=== PATIENT | female | born 1950 | race Caucasian/White ===

== ENCOUNTER 2016-11-06 07:00 | Day surgery (SDC) | payer MEDICARE, MEDICAID ==
[2016-11-06] VITALS (14 sets, daily range): BP systolic 91–148; BP diastolic 48–87
[~2016-11-06] VITALS: Ht 30.5 cm; Wt 0.5 kg
[~2016-11-06 07:00] MED LIST: ASPI325T4 PO; PROC25SU24 PO
[2016-11-06] MEDS ORDERED: FUROSEMIDE 20 MG/2 ML VIAL ONE (13:37)
[2016-11-06] MEDS ORDERED: FUROSEMIDE 20 MG/2 ML VIAL IV ONE ×2 (14:00→15:45)
[2016-11-06 14:42] LABS: CONDITION AutoValidated; DEFINITIVE SEE PRINTOUT; Hematocrit 23.6 % (36.0-46.0); Hemoglobin 8.4 g/dL (12.2-16.2); Mean Corpuscular Hemoglobin 35.8 pg (28.0-32.0); Mean Corpuscular Hgb Conc. 35.6 g/dL (32.0-36.0); Mean Corpuscular Volume 100.5 fL (80.0-100.0); Mean Platelet Volume 9.4 fL (7.4-10.4); Platelet Count (auto) 21 10^3/uL (140-450); SUSPECT SEE PRINTOUT
[2016-11-06 14:44] LABS: Red Cell Distribution Width 27.7 % (11.6-16.0)
[2016-11-06 14:46] LABS: Metamyelocytes % 0; Myelocytes % 0; Promyelocytes % 0; Reactive Lymphocytes 0
[2016-11-06 15:00] LABS: Anisocytosis Slight; Platelet Estimate Markedly Decreased
== END 2016-11-06 19:00 | disposition home or self-care (01) ==
LOC: CATH 07:00
PROVIDERS: ATTEND Internal Medicine
DX: D64.9 Anemia, unspecified (principal)
CPT/HCPCS: 36415; 36430; 85007; 85027; 86850; 86900; 86901; 86920; J1940; J7040; P9016

== ENCOUNTER 2016-11-27 17:50 | Emergency (ER) | payer MEDICARE, MEDICAID ==
[~2016-11-27] VITALS: Ht 165.1 cm; Wt 117.9 kg
[2016-11-27 19:47] LABS: CONDITION Y; DEFINITIVE SEE PRINTOUT; Hematocrit 16.1 % (36.0-46.0); Mean Corpuscular Hemoglobin 34.4 pg (28.0-32.0); Mean Corpuscular Hgb Conc. 35.4 g/dL (32.0-36.0); Mean Corpuscular Volume 97.2 fL (80.0-100.0); Mean Platelet Volume 8.7 fL (7.4-10.4); Platelet Count (auto) 28 10^3/uL (140-450); SUSPECT SEE PRINTOUT; White Blood Cell 2.2 10^3/uL (4.4-10.8)
[2016-11-27 19:50] LABS: Albumin 3.5 g/dL (3.4-5.0); BUN/Creatinine Ratio 25.8; Bilirubin, Total 0.5 mg/dL (0.2-1.0); Calcium 8.7 mg/dL (8.5-10.1); Potassium 3.9 mmol/L (3.5-5.1); Red Cell Distribution Width 25.4 % (11.6-16.0)
[2016-11-27 19:57] LABS: Hemoglobin 5.7 g/dL (12.2-16.2)
[2016-11-27 19:58] LABS: Metamyelocytes % 0; Myelocytes % 0; Promyelocytes % 0; Reactive Lymphocytes 0
[2016-11-27 20:38] LABS: Platelet Estimate Markedly Decreased
[2016-11-27 20:41] LABS: Anisocytosis Moderate
[2016-11-28] VITALS (9 sets, daily range): BP systolic 119–161; BP diastolic 47–94
[2016-11-28 06:32] LABS: CONDITION Y; DEFINITIVE SEE PRINTOUT; Hematocrit 22.4 % (36.0-46.0); Hemoglobin 8.1 g/dL (12.2-16.2); Mean Corpuscular Hemoglobin 33.8 pg (28.0-32.0); Mean Corpuscular Volume 93.7 fL (80.0-100.0); Mean Platelet Volume 9.2 fL (7.4-10.4); SUSPECT SEE PRINTOUT
[2016-11-28 06:34] LABS: Red Cell Distribution Width 20.5 % (11.6-16.0)
[2016-11-28 06:38] LABS: Platelet Count (auto) 20 10^3/uL (140-450); White Blood Cell 1.6 10^3/uL (4.4-10.8)
[2016-11-28 06:39] LABS: Metamyelocytes % 0; Myelocytes % 0; Promyelocytes % 0; Reactive Lymphocytes 0
[2016-11-28 08:42] LABS: Anisocytosis Moderate; Platelet Estimate Markedly Decreased
== END 2016-11-28 07:44 | disposition home or self-care (01) ==
LOC: ER 17:54
DX: D61.818 Other pancytopenia (principal); D46.9 Myelodysplastic syndrome, unspecified; E78.5 Hyperlipidemia, unspecified; I10 Essential (primary) hypertension; M54.9 Dorsalgia, unspecified; F12.10 Cannabis abuse, uncomplicated; G89.29 Other chronic pain; B15.9 Hepatitis A without hepatic coma; Z98.51 Tubal ligation status; Z88.0 Allergy status to penicillin; Z88.1 Allergy status to other antibiotic agents; Z88.6 Allergy status to analgesic agent; Z87.891 Personal history of nicotine dependence
CPT/HCPCS: 36415; 36430; 71010; 80053; 84484; 85007; 85027; 86850; 86900; 86901; 86920; 99285; P9016

== ENCOUNTER 2017-01-18 17:16 | Inpatient (IN) | payer MEDICARE, MEDICAID ==
[~2017-01-18] VITALS: Ht 167.6 cm; Wt 117.9 kg
[2017-01-18 18:40] LABS: CONDITION Y; DEFINITIVE SEE PRINTOUT; Hematocrit 16.1 % (36.0-46.0); Mean Corpuscular Hemoglobin 38.6 pg (28.0-32.0); Mean Corpuscular Hgb Conc. 34.7 g/dL (32.0-36.0); Mean Corpuscular Volume 111.3 fL (80.0-100.0); Mean Platelet Volume 7.9 fL (7.4-10.4); SUSPECT SEE PRINTOUT
[2017-01-18 18:46] LABS: Red Cell Distribution Width 31.7 % (11.6-16.0); White Blood Cell 1.9 10^3/uL (4.4-10.8)
[2017-01-18 18:47] LABS: Hemoglobin 5.6 g/dL (12.2-16.2); Platelet Count (auto) 43 10^3/uL (140-450)
[2017-01-18 18:48] LABS: Metamyelocytes % 0; Myelocytes % 0; Promyelocytes % 0; Reactive Lymphocytes 0
[2017-01-18 18:57] LABS: Albumin 3.4 g/dL (3.4-5.0); BUN/Creatinine Ratio 26.8; Bilirubin, Total 0.4 mg/dL (0.2-1.0); Calcium 8.4 mg/dL (8.5-10.1); Potassium 3.9 mmol/L (3.5-5.1); Total Protein 6.8 g/dL (6.4-8.2)
[2017-01-18] MEDS: SODIUM CHLORIDE 0.9% 1,000 ML IV SCH (19:29)
[2017-01-18] MEDS ORDERED: MORPHINE SULF INJ 2 MG/ML SYRINGE 1ML IV PRN ×2 (19:30)
[2017-01-18] MEDS ORDERED: TEMAZEPAM 15 MG CAP PO PRN (19:30)
[2017-01-18] MEDS ORDERED: HYDROcodone-ACET 5/325MG TAB PO PRN (19:30)
[2017-01-18] MEDS ORDERED: ACETAMINOPHEN 325 MG TAB PO PRN (19:30)
[2017-01-18] MEDS ORDERED: ONDANSETRON HCL 4 MG/2 ML VIAL IV PRN (19:30)
[2017-01-18] MEDS ORDERED: NITROGLYCERIN 0.4 MG SL TAB SL PRN (19:30)
[2017-01-18] MEDS ORDERED: DEXTROSE (50%) 50ML SYRG IV PRN (19:45)
[2017-01-18] MEDS ORDERED: cloNIDine HCL 0.1 MG TAB PO PRN (19:45)
[2017-01-18 20:00] LABS: Anisocytosis Marked; Macrocytosis Marked; Ovalocytes FEW; Platelet Estimate Decreased; Polychromasia Slight
[2017-01-18 20:08] LABS: Partial Thromboplastin Time 22.2 sec (22.64-33.71); Prothrombin Time 10.9 sec (9.37-12.3)
[2017-01-18 22:50] VITALS: BP 135/80
[2017-01-18] MEDS: ACCU-CHEK COMFORT CURVE STRIP VI SCH (23:08)
[2017-01-18] MEDS: FAMOTIDINE 20 MG TAB PO SCH (23:09)
[2017-01-18] MEDS: InsuLIN REG 1unit/0.01ml Soln (100units/ml) SC SCH (23:09)
[2017-01-19] VITALS (14 sets, daily range): BP systolic 105–141; BP diastolic 45–71
[2017-01-19] MEDS: InsuLIN REG 1unit/0.01ml Soln (100units/ml) SC SCH ×2 (06:09→11:30)
[2017-01-19] MEDS: ACCU-CHEK COMFORT CURVE STRIP VI SCH ×2 (06:09→11:30)
[2017-01-19 08:34] LABS: CONDITION Y; DEFINITIVE SEE PRINTOUT; SUSPECT SEE PRINTOUT
[2017-01-19 08:40] LABS: Hematocrit 21.8 % (36.0-46.0); Mean Corpuscular Hgb Conc. 35.1 g/dL (32.0-36.0); Mean Corpuscular Volume 99.7 fL (80.0-100.0); Mean Platelet Volume 8.1 fL (7.4-10.4); Platelet Count (auto) 37 10^3/uL (140-450)
[2017-01-19 08:43] LABS: Red Cell Distribution Width 28.8 % (11.6-16.0)
[2017-01-19 08:47] LABS: Hemoglobin 7.6 g/dL (12.2-16.2); White Blood Cell 1.7 10^3/uL (4.4-10.8)
[2017-01-19 08:48] LABS: Metamyelocytes % 0; Myelocytes % 0; Promyelocytes % 0; Reactive Lymphocytes 0
[2017-01-19 08:52] LABS: Albumin 3.1 g/dL (3.4-5.0); BUN/Creatinine Ratio 27.6; Calcium 7.7 mg/dL (8.5-10.1); Potassium 3.9 mmol/L (3.5-5.1)
[2017-01-19 08:54] LABS: Bilirubin, Total 0.6 mg/dL (0.2-1.0); Total Protein 6.2 g/dL (6.4-8.2)
[2017-01-19 09:53] LABS: Platelet Estimate Decreased
[2017-01-19 09:54] LABS: Anisocytosis Marked; Macrocytosis Marked; Ovalocytes FEW; Polychromasia Slight; Tear Drop Cells FEW
[2017-01-19] MEDS ORDERED: MULTIPLE VITAMIN TAB PO SCH (10:00)
[2017-01-19] MEDS: FAMOTIDINE 20 MG TAB PO SCH (10:12)
[2017-01-19] MEDS: SODIUM CHLORIDE 0.9% 1,000 ML IV SCH (12:34)
== END 2017-01-19 19:40 | disposition home or self-care (01) | DRG 809 ==
LOC: ER 17:21 → TELE 17:22 → TELE-WESTW 22:20
PROVIDERS: ADMIT Internal Medicine; ATTEND Internal Medicine
PROC: 30233N1 Transfusion of Nonautologous Red Blood Cells into Peripheral Vein, Percutaneous Approach (ICD-10-PCS; principal; 2017-01-19)
DX: D61.818 Other pancytopenia (principal); Z68.41 Body mass index [BMI] 40.0-44.9, adult; E11.22 Type 2 diabetes mellitus with diabetic chronic kidney disease; D46.9 Myelodysplastic syndrome, unspecified; E11.65 Type 2 diabetes mellitus with hyperglycemia; I12.9 Hypertensive chronic kidney disease with stage 1 through stage 4 chronic kidney disease, or unspecified chronic kidney disease; D46.20 Refractory anemia with excess of blasts, unspecified; E66.9 Obesity, unspecified; N18.2 Chronic kidney disease, stage 2 (mild); G89.29 Other chronic pain; M19.90 Unspecified osteoarthritis, unspecified site; M54.9 Dorsalgia, unspecified; Z88.5 Allergy status to narcotic agent; Z88.1 Allergy status to other antibiotic agents; Z88.0 Allergy status to penicillin; Z82.0 Family history of epilepsy and other diseases of the nervous system; Z82.3 Family history of stroke; Z83.3 Family history of diabetes mellitus; Z87.891 Personal history of nicotine dependence; Z98.51 Tubal ligation status
CPT/HCPCS: 36415; 80053; 82962; 83036; 85007; 85027; 85610; 85730; 86850; 86900; 86901; 86920; 93005; 96360; 99291